=== PATIENT | male | born 1955 | race Hispanic/Latino ===

== ENCOUNTER → 2019-03-24 | Outpatient (CLI) | payer MEDICARE ==
[~2019-03-24] MED LIST: GADOBENATE DIMEGLUMINE 1 ML IV ONE
--- NOTE | 2019-03-25 07:42 | Diagnostic Imaging Report ---
History: Neoplasm of mouth Comparison studies: None. Technique: Sagittal axial T1 FLAIR, axial and coronal STIR, axial proton density, axial DWI and postcontrast sagittal, axial and coronal T1. Intravenous contrast: 10 cc of MultiHance Findings: This is a baseline exam at this institution. Image quality: Several pulse sequences are moderately limited by susceptibility artifacts. Several pulse sequences are also limited artifacts related to patient motion. Soft tissues: Enhancing 4.9 x 4.7 x 3.2 cm (SI x AP x TV) mass within the right oropharyngeal tonsillar fossa extends superiorly to the soft palate where it crosses midline and into the right inferolateral nasopharynx. Mass appears to invade the right pterygoid along within the right medial customer operations intern space. The right peripharyngeal fat is partially effaced and there is mild mass effect on the inferior nasopharyngeal and oropharyngeal airways. Mass extends to the prevertebral soft tissues at the C2 level where abuts the right longus coli muscle. No definite invasion into the adjacent C2 vertebral body. Nonspecific abnormal increased T2 signal changes are present throughout the bilateral customer operations intern spaces and deep maxillofacial soft tissues. This may be treatment-related in the appropriate clinical context (previous radiation treatment?) Lymph nodes: Enhancing mildly prominent bilateral level II lymph nodes. Largest right level IIA lymph node measures 1.8 cm. Largest left level IIA lymph node measures 1.7 cm. There bilateral enhancing lateral retropharyngeal lymph nodes which measure up to 9 mm in short axis. Evaluation of the infrahyoid neck is moderately limited by artifacts. Vessels: The carotid and vertebral arteries as well as the jugular veins are grossly patent. Glands: Submandibular: Limited evaluation due to artifact. No gross abnormalities. Parotid: Normal in size and homogeneous. No masses . Thyroid: Limited evaluation due to artifact. No gross abnormalities Orbits: The globes are grossly intact. No gross abnormal. Paranasal sinuses: Nonspecific mucosal thickening in the bilateral maxillary sinuses. Remaining sinuses are clear. Temporal bones: Right middle ear and mastoid effusion presumably due to right eustachian tube obstruction/dysfunction. No T2 signal changes on the left. Skull base and facial bones: No bone marrow abnormalities. Cervical spine: Limited evaluation due to artifacts. Moderate multilevel disc degeneration. Disc osteophyte complexes from C4 to C7 result in canal stenosis; moderate at C3-C4, severe at C4-C5, moderate C5-C6 and mild at C6-C7. Multilevel uncovertebral and facet arthrosis result in varying degrees of moderate to severe foraminal stenosis from from C3 to C7. IMPRESSION: This is a baseline exam at this institution. 1. Moderately limited exam as described. 2. 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 3. Nonspecific T2 hyperintense reactive changes throughout the deep maxillofacial soft tissues, possibly treatment related (recent XRT?). 4. 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 5. Advanced multilevel degenerative changes in the cervical spine with severe canal stenosis at C4-C5. 6. Right middle ear mastoid inflammatory changes presumably related to eustachian tube obstruction/dysfunction. Neck CT with IV contrast may be of benefit if not previously performed. Signed by: Dr. Alvino Kang M.D. on 03/25/2019 7:39 AM
--- NOTE | 2019-03-25 07:58 | Diagnostic Imaging Report ---
History: Neoplasm of mouth Comparison studies: Neck MRI performed on the same date. Technique: Pre-contrast: Sagittal T2; axial T1-IR, MPGR, DWI, T2 FLAIR Post-contrast: axial and coronal T1. Intravenous contrast: 10 cc MultiHance Findings: Scalp: No abnormal signal. No masses. Bone marrow: There is nonspecific enhancement within the clivus with focal decreased T1 signal changes at the anterior basisphenoid which are nonspecific. No other marrow signal abnormalities. Brain sulci: Mildly prominent. Ventricles: Mild compensatory dilatation. No hydrocephalus. Parenchyma: No mass, hemorrhage or acute ischemia. A few scattered T2 FLAIR hyperintense foci in the supratentorial white matter nonspecific most compatible with chronic microvascular ischemic changes. Suprasellar region: No abnormalities. Craniocervical junction: Patent foramen magnum. No Chiari one malformation. Vessels: Normal flow-voids in the arteries and sinuses. Middle ear mastoid cavities: No abnormalities on the left. There are T2 hyperintense changes with effusion throughout the right middle ear and mastoid cavity related to right eustachian tube obstruction/dysfunction. No abnormal T2 signal changes in the left middle ear mastoid cavities. Additional findings: Abnormal increased reactive T2 hyperintense signal changes and enhancement within the right greater than left mill worker spaces and deep maxillofacial soft tissues extends up to the skull base. Abnormal enhancement within the right pterygopalatine fossa is nonspecific. No gross intracranial perineural tumor extension within the limits of this exam. Please see separate neck MRI report from the same date (03/24/2019) for further characterization of oropharyngeal neoplasm. IMPRESSION: 1. No evidence of intracranial metastatic disease. 2. Mild generalized brain volume loss. 3. Mild chronic microvascular ischemic changes. 4. Signal changes in the clivus which are nonspecific. Please see separate neck MRI report from the same date (03/24/2019) for further characterization of oropharyngeal neoplasm. Signed by: Dr. Alvino Kang M.D. on 03/25/2019 7:55 AM
== END ==
LOC: MRI 03-18 09:24
PROVIDERS: ATTEND Family Medicine
DX: D49.0 Neoplasm of unspecified behavior of digestive system (principal)
CPT/HCPCS: 70543; 70553; A9577